=== PATIENT | male | born 1965 | race Caucasian/White ===

== ENCOUNTER 2022-02-27 15:09 | Inpatient (IN) | payer OTHER ==
[2022-02-27 17:11] VITALS: BMI 20.6
[2022-02-27] MEDS ORDERED: LOPERAMIDE HCL 2 MG CAPSULE PO PRN (17:35)
[2022-02-27] MEDS ORDERED: ACETAMINOPHEN 325 MG TABLET (FP) PO PRN ×2 (17:35)
[2022-02-27] MEDS ORDERED: IBUPROFEN 400 MG TABLET (FP) PO PRN (17:35)
[2022-02-27] MEDS ORDERED: ONDANSETRON *ODT* 4 MG TABLET SL PRN (17:35)
[2022-02-27] MEDS ORDERED: MAGNESIUM CITRATE 300 ML BOTTLE PO PRN (17:35)
[2022-02-27] MEDS ORDERED: MAG HYDROX/AL HYDROX/SIMETH 30 ML UNIT-DOSE CUP PO PRN (17:35)
[2022-02-27] MEDS ORDERED: hydrOXYzine PAMOATE 25 MG CAPSULE (FP) PO PRN (17:35)
[2022-02-27] MEDS ORDERED: BISMUTH SUBSALICYLATE 524 MG/30 ML PO PRN (17:35)
[2022-02-27] MEDS ORDERED: IBUPROFEN 600 MG TABLET (FP) PO PRN (17:35)
[2022-02-27] MEDS ORDERED: guaiFENesin 200 MG/10 ML 10 ML UNIT-DOSE CUPS PO PRN (17:35)
[2022-02-27] MEDS ORDERED: P-EPHED 60MG/TRIPROLIDI 2.5MG TABLET PO PRN (17:35)
[2022-02-27] MEDS ORDERED: MAGNESIUM HYDROX 2400MG/30ML ORAL SUSPENSION 30 ML CUP PO PRN (17:35)
[2022-02-27] MEDS ORDERED: BENZOCAINE/MENTHOL (CHLORASEPTIC ) LOZENGE MM PRN (17:35)
[2022-02-27] MEDS ORDERED: DICYCLOMINE HCL 10 MG CAPSULE PO PRN (17:35)
[2022-02-27] MEDS ORDERED: METHOCARBAMOL 500 MG TABLET PO PRN (17:35)
[2022-02-27] MEDS ORDERED: ALBUTEROL SO4 HFA INHALER IH PRN (18:17)
[2022-02-27] MEDS: ASPIRIN COATED 81 MG TABLET.EC PO SCH (19:49)
[2022-02-27] MEDS: THIAMINE HCL 100 MG TABLET (FP) PO SCH (23:05)
[2022-02-27] MEDS: PHENobarbital 30 MG TABLET PO SCH (23:06)
[2022-02-28] MEDS: PHENobarbital 30 MG TABLET PO SCH ×3 (07:04→22:16)
[2022-02-28] MEDS ORDERED: cloNIDine HCL 0.1 MG TABLET PO PRN (09:12)
[2022-02-28] MEDS ORDERED: methaDONE HCL 10 MG TABLET (FOR DETOX USE ONLY) PO ONE (09:12)
[2022-02-28] MEDS: ASPIRIN COATED 81 MG TABLET.EC PO SCH (10:24)
[2022-02-28] MEDS: PRENATAL VITAMINS W/ FOLIC ACID TABLET (FP) PO SCH (10:24)
[2022-02-28] MEDS: NICOTINE 7 MG/24 HOURS TOPICAL PATCH TD SCH (10:25)
[2022-02-28 11:21] LABS: MCH 31.3 pg (25.7-33.7); MCHC 33.4 g/dl (32.0-35.9); MEAN CELL VOLUME 93.8 fl (80-96); MEAN PLT VOLUME 8.8 fl (7.5-11.1); PLATELET COUNT 190 10^3/uL (134-434); RBC 4.48 M/mm3 (4.00-5.60); RDW 14.6 % (11.9-15.9)
[2022-02-28 11:27] LABS: ALBUMIN 3.6 g/dl (3.4-5.0); BLOOD UREA NITROGEN 18.2 mg/dL (7-18)
[2022-02-28 11:29] LABS: CALCIUM 9.3 mg/dL (8.5-10.1); CREATININE 0.7 mg/dL (0.55-1.3)
[2022-02-28 11:32] LABS: TOT PROT 7.6 g/dl (6.4-8.2)
[2022-02-28 11:33] LABS: BILIRUBIN,TOTAL 0.4 mg/dL (0.2-1)
[2022-02-28] MEDS: AMITRIPTYLINE HCL 25 MG TABLET PO SCH (22:15)
[2022-02-28] MEDS: THIAMINE HCL 100 MG TABLET (FP) PO SCH (22:16)
[2022-02-28] MEDS: MELATONIN 5 MG TABLETS PO PRN (22:16)
[2022-03-01] MEDS: PHENobarbital 30 MG TABLET PO SCH ×3 (06:29→22:20)
[2022-03-01] MEDS: PRENATAL VITAMINS W/ FOLIC ACID TABLET (FP) PO SCH (10:26)
[2022-03-01] MEDS: ASPIRIN COATED 81 MG TABLET.EC PO SCH (10:26)
[2022-03-01] MEDS: NICOTINE 7 MG/24 HOURS TOPICAL PATCH TD SCH (10:27)
[2022-03-01] MEDS: AMITRIPTYLINE HCL 25 MG TABLET PO SCH (22:20)
[2022-03-01] MEDS: THIAMINE HCL 100 MG TABLET (FP) PO SCH (22:20)
[2022-03-01] MEDS: MELATONIN 5 MG TABLETS PO PRN (22:21)
[2022-03-02] MEDS: PHENobarbital 30 MG TABLET PO SCH ×2 (05:30→14:34)
[2022-03-02] MEDS ORDERED: diazePAM 5 MG TABLET PO ONE (08:49)
[2022-03-02] MEDS: PRENATAL VITAMINS W/ FOLIC ACID TABLET (FP) PO SCH (09:19)
[2022-03-02] MEDS: ASPIRIN COATED 81 MG TABLET.EC PO SCH (09:20)
[2022-03-02] MEDS: NICOTINE 7 MG/24 HOURS TOPICAL PATCH TD SCH (09:23)
[2022-03-02] MEDS ORDERED: methaDONE HCL 10 MG TABLET (FOR DETOX USE ONLY) PO ONE (10:00)
[2022-03-02 14:45] VITALS: RESP 18
[2022-03-02 17:05] VITALS: BP 101/63; PULSE 78; TEMP 97.8
== END 2022-03-02 16:44 | disposition home or self-care (01) | DRG 773 ==
LOC: YASAS 15:09 → Y3N 18:04
PROVIDERS: ADMIT Allergy & Immunology; ATTEND Surgery
PROC: HZ2ZZZZ Detoxification Services for Substance Abuse Treatment (ICD-10-PCS; principal; 2022-02-27)
DX: F11.23 Opioid dependence with withdrawal (principal); F10.230 Alcohol dependence with withdrawal, uncomplicated; F14.20 Cocaine dependence, uncomplicated; F13.20 Sedative, hypnotic or anxiolytic dependence, uncomplicated; F16.20 Hallucinogen dependence, uncomplicated; F12.20 Cannabis dependence, uncomplicated; F17.210 Nicotine dependence, cigarettes, uncomplicated; F19.282 Other psychoactive substance dependence with psychoactive substance-induced sleep disorder; F19.24 Other psychoactive substance dependence with psychoactive substance-induced mood disorder; R56.1 Post traumatic seizures; Z86.69 Personal history of other diseases of the nervous system and sense organs; Z86.19 Personal history of other infectious and parasitic diseases; Z88.8 Allergy status to other drugs, medicaments and biological substances; Z28.310 Unvaccinated for COVID-19; Z28.9 Immunization not carried out for unspecified reason
CPT/HCPCS: 36415; 80053; 85027; 86780; C9803-CS; U0003; U0005

== ENCOUNTER 2022-07-19 17:13 | Inpatient (IN) | payer OTHER ==
[2022-07-19 18:44] VITALS: BMI 23.8
[2022-07-19] MEDS ORDERED: LOPERAMIDE HCL 2 MG CAPSULE PO PRN (19:41)
[2022-07-19] MEDS ORDERED: IBUPROFEN 400 MG TABLET (FP) PO PRN (19:41)
[2022-07-19] MEDS ORDERED: hydrOXYzine PAMOATE 25 MG CAPSULE (FP) PO PRN (19:41)
[2022-07-19] MEDS ORDERED: IBUPROFEN 600 MG TABLET (FP) PO PRN (19:41)
[2022-07-19] MEDS ORDERED: P-EPHED 60MG/TRIPROLIDI 2.5MG TABLET PO PRN (19:41)
[2022-07-19] MEDS ORDERED: DICYCLOMINE HCL 10 MG CAPSULE PO PRN (19:41)
[2022-07-19] MEDS ORDERED: BENZOCAINE/MENTHOL (CHLORASEPTIC ) LOZENGE MM PRN (19:41)
[2022-07-19] MEDS ORDERED: guaiFENesin 200 MG/10 ML 10 ML UNIT-DOSE CUPS PO PRN (19:41)
[2022-07-19] MEDS ORDERED: MAGNESIUM HYDROX 2400MG/30ML ORAL SUSPENSION 30 ML CUP PO PRN (19:41)
[2022-07-19] MEDS ORDERED: METHOCARBAMOL 500 MG TABLET PO PRN (19:41)
[2022-07-19] MEDS ORDERED: MAG HYDROX/AL HYDROX/SIMETH 30 ML UNIT-DOSE CUP PO PRN (19:41)
[2022-07-19] MEDS ORDERED: BISMUTH SUBSALICYLATE 524 MG/30 ML PO PRN (19:41)
[2022-07-19] MEDS ORDERED: ONDANSETRON *ODT* 4 MG TABLET SL PRN (19:41)
[2022-07-19] MEDS ORDERED: POLYETHYLENE GLYCOL (HEALTHYLAX) 3350 17 GM PACKET PO PRN (19:41)
[2022-07-19] MEDS ORDERED: ACETAMINOPHEN 325 MG TABLET (FP) PO PRN ×2 (19:41)
[2022-07-19] MEDS ORDERED: NALOXONE HCL (KLOXXADO) 8 MG SPRAY NS PRN (19:41)
[2022-07-19] MEDS: THIAMINE HCL 100 MG TABLET (FP) PO SCH (22:05)
[2022-07-19] MEDS: PHENobarbital 30 MG TABLET PO SCH (22:40)
[2022-07-19] MEDS: MELATONIN 5 MG TABLETS PO PRN (22:41)
[2022-07-20] MEDS ORDERED: cloNIDine HCL 0.1 MG TABLET PO PRN (09:43)
[2022-07-20] MEDS ORDERED: methaDONE HCL 10 MG TABLET (FOR DETOX USE ONLY) PO ONE (10:00)
[2022-07-20] MEDS: PHENobarbital 30 MG TABLET PO SCH ×2 (10:14→22:44)
[2022-07-20] MEDS: PRENATAL VITAMINS W/ FOLIC ACID TABLET (FP) PO SCH (10:14)
[2022-07-20] MEDS: ASPIRIN COATED 81 MG TABLET.EC PO SCH (10:14)
[2022-07-20] MEDS: NICOTINE 7 MG/24 HOURS TOPICAL PATCH TD SCH (10:15)
[2022-07-20 13:42] LABS: HEMATOCRIT 37.9 % (35.4-49); HEMOGLOBIN 13.1 GM/dL (11.7-16.9); MCH 32.5 pg (25.7-33.7); MCHC 34.6 g/dl (32.0-35.9); MEAN PLT VOLUME 9.1 fl (7.5-11.1); PLATELET COUNT 133 10^3/uL (134-434); RBC 4.03 M/mm3 (4.00-5.60); WHITE BLOOD COUNT 4.6 K/mm3 (4.0-10.0)
[2022-07-20 14:42] LABS: CALCIUM 8.6 mg/dL (8.5-10.1)
[2022-07-20 14:43] LABS: ALBUMIN 3.3 g/dl (3.4-5.0); BLOOD UREA NITROGEN 14.5 mg/dL (7-18)
[2022-07-20 14:46] LABS: CREATININE 0.6 mg/dL (0.55-1.3)
[2022-07-20 14:47] LABS: BILIRUBIN,TOTAL 0.6 mg/dL (0.2-1); TOT PROT 6.9 g/dl (6.4-8.2)
[2022-07-20] MEDS: diazePAM 5 MG TABLET PO PRN (17:36)
[2022-07-20] MEDS: THIAMINE HCL 100 MG TABLET (FP) PO SCH (22:44)
[2022-07-21] MEDS: diazePAM 5 MG TABLET PO PRN ×4 (02:25→22:42)
[2022-07-21] MEDS: PRENATAL VITAMINS W/ FOLIC ACID TABLET (FP) PO SCH (10:18)
[2022-07-21] MEDS: NICOTINE 7 MG/24 HOURS TOPICAL PATCH TD SCH (10:18)
[2022-07-21] MEDS: PHENobarbital 30 MG TABLET PO SCH ×2 (10:19→22:42)
[2022-07-21] MEDS: ASPIRIN COATED 81 MG TABLET.EC PO SCH (10:19)
[2022-07-21] MEDS: THIAMINE HCL 100 MG TABLET (FP) PO SCH (22:42)
[2022-07-22] MEDS: diazePAM 5 MG TABLET PO PRN ×3 (04:03→17:42)
[2022-07-22] MEDS ORDERED: methaDONE HCL 10 MG TABLET (FOR DETOX USE ONLY) PO ONE (10:00)
[2022-07-22] MEDS: PHENobarbital 30 MG TABLET PO SCH ×2 (10:18→22:53)
[2022-07-22] MEDS: ASPIRIN COATED 81 MG TABLET.EC PO SCH (10:19)
[2022-07-22] MEDS: NICOTINE 7 MG/24 HOURS TOPICAL PATCH TD SCH (10:23)
[2022-07-22] MEDS: PRENATAL VITAMINS W/ FOLIC ACID TABLET (FP) PO SCH (10:23)
[2022-07-22] MEDS: MELATONIN 5 MG TABLETS PO PRN (22:53)
[2022-07-22] MEDS: THIAMINE HCL 100 MG TABLET (FP) PO SCH (22:53)
[2022-07-23] MEDS: PHENobarbital 30 MG TABLET PO SCH ×2 (10:44→22:32)
[2022-07-23] MEDS: ASPIRIN COATED 81 MG TABLET.EC PO SCH (10:44)
[2022-07-23] MEDS: NICOTINE 7 MG/24 HOURS TOPICAL PATCH TD SCH (10:44)
[2022-07-23] MEDS: PRENATAL VITAMINS W/ FOLIC ACID TABLET (FP) PO SCH (10:46)
[2022-07-23] MEDS ORDERED: AMITRIPTYLINE HCL 75 MG TABLET PO SCH (22:00)
[2022-07-23] MEDS: THIAMINE HCL 100 MG TABLET (FP) PO SCH (22:30)
[2022-07-24] MEDS ORDERED: AMITRIPTYLINE HCL 25 MG TABLET PO SCH (09:34)
[2022-07-24] MEDS ORDERED: methaDONE HCL 10 MG TABLET (FOR DETOX USE ONLY) PO ONE (10:00)
[2022-07-24] MEDS: NICOTINE 7 MG/24 HOURS TOPICAL PATCH TD SCH (10:34)
[2022-07-24] MEDS: PRENATAL VITAMINS W/ FOLIC ACID TABLET (FP) PO SCH (10:35)
[2022-07-24] MEDS: ASPIRIN COATED 81 MG TABLET.EC PO SCH (10:35)
[2022-07-24] MEDS: PHENobarbital 30 MG TABLET PO SCH ×2 (10:36→22:13)
[2022-07-24] MEDS: THIAMINE HCL 100 MG TABLET (FP) PO SCH (22:13)
[2022-07-25 09:14] VITALS: BP 100/60; PULSE 71; RESP 18; TEMP 97.5
[2022-07-25] MEDS: ASPIRIN COATED 81 MG TABLET.EC PO SCH (10:28)
[2022-07-25] MEDS: PRENATAL VITAMINS W/ FOLIC ACID TABLET (FP) PO SCH (10:28)
[2022-07-25] MEDS: PHENobarbital 30 MG TABLET PO SCH (10:28)
[2022-07-25] MEDS: NICOTINE 7 MG/24 HOURS TOPICAL PATCH TD SCH (10:28)
[2022-07-25] MEDS ORDERED: AMITRIPTYLINE HCL 25 MG TABLET PO SCH (22:00)
== END 2022-07-25 15:30 | disposition other institution (70) | DRG 773 ==
LOC: YASAS 17:13 → Y6N 21:57
PROVIDERS: ADMIT Allergy & Immunology; ATTEND Surgery
PROC: HZ2ZZZZ Detoxification Services for Substance Abuse Treatment (ICD-10-PCS; principal; 2022-07-19)
DX: F11.23 Opioid dependence with withdrawal (principal); F10.230 Alcohol dependence with withdrawal, uncomplicated; F14.20 Cocaine dependence, uncomplicated; F13.20 Sedative, hypnotic or anxiolytic dependence, uncomplicated; F16.20 Hallucinogen dependence, uncomplicated; F17.210 Nicotine dependence, cigarettes, uncomplicated; F19.282 Other psychoactive substance dependence with psychoactive substance-induced sleep disorder; F19.280 Other psychoactive substance dependence with psychoactive substance-induced anxiety disorder; R56.1 Post traumatic seizures; B18.2 Chronic viral hepatitis C; Z86.73 Personal history of transient ischemic attack (TIA), and cerebral infarction without residual deficits; Z87.820 Personal history of traumatic brain injury; Z28.310 Unvaccinated for COVID-19; Z28.9 Immunization not carried out for unspecified reason; Z56.0 Unemployment, unspecified; Z59.00 Homelessness unspecified
CPT/HCPCS: 36415; 80053; 80184; 82962; 85027; 86780; 87811; C9803-CS; U0003; U0005

== ENCOUNTER 2022-07-25 15:28 | Inpatient (IN) | payer OTHER ==
[2022-07-25] MEDS ORDERED: IBUPROFEN 400 MG TABLET (FP) PO PRN (16:14)
[2022-07-25] MEDS ORDERED: MAGNESIUM HYDROX 2400MG/30ML ORAL SUSPENSION 30 ML CUP PO PRN (16:14)
[2022-07-25] MEDS ORDERED: POLYETHYLENE GLYCOL (HEALTHYLAX) 3350 17 GM PACKET PO PRN (16:14)
[2022-07-25] MEDS ORDERED: BENZOCAINE/MENTHOL (CHLORASEPTIC ) LOZENGE MM PRN (16:14)
[2022-07-25] MEDS ORDERED: LOPERAMIDE HCL 2 MG CAPSULE PO PRN (16:14)
[2022-07-25] MEDS ORDERED: ACETAMINOPHEN 325 MG TABLET (FP) PO PRN (16:14)
[2022-07-25] MEDS ORDERED: MAG HYDROX/AL HYDROX/SIMETH 30 ML UNIT-DOSE CUP PO PRN (16:14)
[2022-07-25] MEDS ORDERED: P-EPHED 60MG/TRIPROLIDI 2.5MG TABLET PO PRN (16:14)
[2022-07-25] MEDS ORDERED: guaiFENesin 200 MG/10 ML 10 ML UNIT-DOSE CUPS PO PRN (16:14)
[2022-07-25] MEDS ORDERED: NICOTINE 10 MG CARTRIDGE (INHALER) IH PRN (16:14)
[2022-07-25] MEDS ORDERED: hydrOXYzine PAMOATE 25 MG CAPSULE (FP) PO PRN (16:14)
[2022-07-25] MEDS: PRENATAL VITAMINS W/ FOLIC ACID TABLET (FP) PO SCH (17:45)
[2022-07-25] MEDS: NICOTINE 7 MG/24 HOURS TOPICAL PATCH TD SCH (17:45)
[2022-07-25] MEDS: MELATONIN 5 MG TABLETS PO SCH (21:30)
[2022-07-25] MEDS: PHENobarbital 30 MG TABLET PO SCH (21:30)
[2022-07-25] MEDS: THIAMINE HCL 100 MG TABLET (FP) PO SCH (21:30)
[2022-07-25] MEDS: AMITRIPTYLINE HCL 25 MG TABLET PO SCH (21:30)
[2022-07-25] MEDS ORDERED: PHENOBARBITAL 30 MG PO SCH (22:00)
[2022-07-26] MEDS: ASPIRIN COATED 81 MG TABLET.EC PO SCH (10:10)
[2022-07-26] MEDS: PRENATAL VITAMINS W/ FOLIC ACID TABLET (FP) PO SCH (10:10)
[2022-07-26] MEDS: NICOTINE 7 MG/24 HOURS TOPICAL PATCH TD SCH (10:11)
[2022-07-26] MEDS: PHENobarbital 30 MG TABLET PO SCH ×2 (11:08→21:14)
[2022-07-26] MEDS: AMITRIPTYLINE HCL 25 MG TABLET PO SCH (21:13)
[2022-07-26] MEDS: THIAMINE HCL 100 MG TABLET (FP) PO SCH (21:13)
[2022-07-26] MEDS: MELATONIN 5 MG TABLETS PO SCH (21:15)
[2022-07-27] MEDS: PRENATAL VITAMINS W/ FOLIC ACID TABLET (FP) PO SCH (10:05)
[2022-07-27] MEDS: ASPIRIN COATED 81 MG TABLET.EC PO SCH (10:05)
[2022-07-27] MEDS: NICOTINE 7 MG/24 HOURS TOPICAL PATCH TD SCH (10:05)
[2022-07-27] MEDS: PHENobarbital 30 MG TABLET PO SCH ×2 (10:05→21:27)
[2022-07-27] MEDS: THIAMINE HCL 100 MG TABLET (FP) PO SCH (21:27)
[2022-07-27] MEDS: AMITRIPTYLINE HCL 25 MG TABLET PO SCH (21:27)
[2022-07-27] MEDS: MELATONIN 5 MG TABLETS PO SCH (21:28)
[2022-07-28] MEDS: PHENobarbital 30 MG TABLET PO SCH ×2 (10:02→21:38)
[2022-07-28] MEDS: NICOTINE 7 MG/24 HOURS TOPICAL PATCH TD SCH (10:02)
[2022-07-28] MEDS: PRENATAL VITAMINS W/ FOLIC ACID TABLET (FP) PO SCH (10:02)
[2022-07-28] MEDS: ASPIRIN COATED 81 MG TABLET.EC PO SCH (10:03)
[2022-07-28] MEDS: AMITRIPTYLINE HCL 25 MG TABLET PO SCH (21:36)
[2022-07-28] MEDS: THIAMINE HCL 100 MG TABLET (FP) PO SCH (21:37)
[2022-07-28] MEDS: MELATONIN 5 MG TABLETS PO SCH (21:39)
[2022-07-29] MEDS: PRENATAL VITAMINS W/ FOLIC ACID TABLET (FP) PO SCH (10:41)
[2022-07-29] MEDS: PHENobarbital 30 MG TABLET PO SCH ×2 (10:41→21:21)
[2022-07-29] MEDS: NICOTINE 7 MG/24 HOURS TOPICAL PATCH TD SCH (10:41)
[2022-07-29] MEDS: ASPIRIN COATED 81 MG TABLET.EC PO SCH (10:41)
[2022-07-29] MEDS: AMITRIPTYLINE HCL 25 MG TABLET PO SCH (21:20)
[2022-07-29] MEDS: THIAMINE HCL 100 MG TABLET (FP) PO SCH (21:20)
[2022-07-29] MEDS: MELATONIN 5 MG TABLETS PO SCH (21:22)
[2022-07-30] MEDS: PHENobarbital 30 MG TABLET PO SCH ×2 (10:10→21:25)
[2022-07-30] MEDS: PRENATAL VITAMINS W/ FOLIC ACID TABLET (FP) PO SCH (10:10)
[2022-07-30] MEDS: ASPIRIN COATED 81 MG TABLET.EC PO SCH (10:10)
[2022-07-30] MEDS: NICOTINE 7 MG/24 HOURS TOPICAL PATCH TD SCH (10:11)
[2022-07-30] MEDS: AMITRIPTYLINE HCL 25 MG TABLET PO SCH (21:24)
[2022-07-30] MEDS: THIAMINE HCL 100 MG TABLET (FP) PO SCH (21:24)
[2022-07-30] MEDS: MELATONIN 5 MG TABLETS PO SCH (21:24)
[2022-07-31 09:00] VITALS: RESP 18
[2022-07-31] MEDS: ASPIRIN COATED 81 MG TABLET.EC PO SCH (10:37)
[2022-07-31] MEDS: PRENATAL VITAMINS W/ FOLIC ACID TABLET (FP) PO SCH (10:37)
[2022-07-31] MEDS: PHENobarbital 30 MG TABLET PO SCH ×3 (10:37→21:07)
[2022-07-31] MEDS: NICOTINE 7 MG/24 HOURS TOPICAL PATCH TD SCH (10:38)
[2022-07-31] MEDS: AMITRIPTYLINE HCL 25 MG TABLET PO SCH (21:06)
[2022-07-31] MEDS: THIAMINE HCL 100 MG TABLET (FP) PO SCH (21:07)
[2022-07-31] MEDS ORDERED: SUVOREXANT 10 MG TABLET PO PRN (22:00)
[2022-08-01] MEDS: PHENobarbital 30 MG TABLET PO SCH ×3 (06:44→21:19)
[2022-08-01] MEDS: ASPIRIN COATED 81 MG TABLET.EC PO SCH (09:53)
[2022-08-01] MEDS: PRENATAL VITAMINS W/ FOLIC ACID TABLET (FP) PO SCH (09:53)
[2022-08-01] MEDS: NICOTINE 7 MG/24 HOURS TOPICAL PATCH TD SCH (09:53)
[2022-08-01] MEDS: AMITRIPTYLINE HCL 25 MG TABLET PO SCH (21:20)
[2022-08-01] MEDS: THIAMINE HCL 100 MG TABLET (FP) PO SCH (21:20)
[2022-08-02] MEDS: PHENobarbital 30 MG TABLET PO SCH ×3 (06:07→21:20)
[2022-08-02] MEDS: NICOTINE 7 MG/24 HOURS TOPICAL PATCH TD SCH (09:52)
[2022-08-02] MEDS: ASPIRIN COATED 81 MG TABLET.EC PO SCH (09:52)
[2022-08-02] MEDS: PRENATAL VITAMINS W/ FOLIC ACID TABLET (FP) PO SCH (09:52)
[2022-08-02] MEDS: THIAMINE HCL 100 MG TABLET (FP) PO SCH (21:19)
[2022-08-02] MEDS: AMITRIPTYLINE HCL 25 MG TABLET PO SCH (21:19)
[2022-08-03] MEDS: PHENobarbital 30 MG TABLET PO SCH (06:15)
[2022-08-03 06:53] VITALS: TEMP 98.2
[2022-08-03 08:46] VITALS: BP 112/67; PULSE 79
[2022-08-03] MEDS: PRENATAL VITAMINS W/ FOLIC ACID TABLET (FP) PO SCH (09:39)
[2022-08-03] MEDS: ASPIRIN COATED 81 MG TABLET.EC PO SCH (09:39)
[2022-08-03] MEDS: NICOTINE 7 MG/24 HOURS TOPICAL PATCH TD SCH (09:39)
== END 2022-08-03 12:30 | disposition home or self-care (01) | DRG 772 ==
LOC: YASAS 15:28 → Y3W 15:29
PROVIDERS: ADMIT Allergy & Immunology; ATTEND Allergy & Immunology
PROC: HZ42ZZZ Group Counseling for Substance Abuse Treatment, Cognitive-Behavioral (ICD-10-PCS; principal; 2022-07-25)
DX: F11.20 Opioid dependence, uncomplicated (principal); F10.20 Alcohol dependence, uncomplicated; F13.20 Sedative, hypnotic or anxiolytic dependence, uncomplicated; F16.20 Hallucinogen dependence, uncomplicated; F17.210 Nicotine dependence, cigarettes, uncomplicated; F19.282 Other psychoactive substance dependence with psychoactive substance-induced sleep disorder; F19.24 Other psychoactive substance dependence with psychoactive substance-induced mood disorder; F41.9 Anxiety disorder, unspecified; E11.9 Type 2 diabetes mellitus without complications; R56.1 Post traumatic seizures; Z86.19 Personal history of other infectious and parasitic diseases; Z86.73 Personal history of transient ischemic attack (TIA), and cerebral infarction without residual deficits; Z88.8 Allergy status to other drugs, medicaments and biological substances; Z59.00 Homelessness unspecified
CPT/HCPCS: 36415; 71046-TC-FY; 82962; 86803; 87522

== ENCOUNTER 2023-01-12 18:54 | Inpatient (IN) | payer OTHER ==
[2023-01-12 21:28] VITALS: BMI 22.8
[2023-01-13] MEDS ORDERED: METHOCARBAMOL 500 MG TABLET PO PRN (00:09)
[2023-01-13] MEDS ORDERED: NICOTINE POLACRILEX 2 MG GUM BUC PRN (00:09)
[2023-01-13] MEDS ORDERED: ONDANSETRON *ODT* 4 MG TABLET SL PRN (00:09)
[2023-01-13] MEDS ORDERED: MAG HYDROX/AL HYDROX/SIMETH 30 ML UNIT-DOSE CUP PO PRN (00:09)
[2023-01-13] MEDS ORDERED: POLYETHYLENE GLYCOL (HEALTHYLAX) 3350 17 GM PACKET PO PRN (00:09)
[2023-01-13] MEDS ORDERED: P-EPHED 60MG/TRIPROLIDI 2.5MG TABLET PO PRN (00:09)
[2023-01-13] MEDS ORDERED: IBUPROFEN 400 MG TABLET (FP) PO PRN (00:09)
[2023-01-13] MEDS ORDERED: LOPERAMIDE HCL 2 MG CAPSULE PO PRN (00:09)
[2023-01-13] MEDS ORDERED: DICYCLOMINE HCL 10 MG CAPSULE PO PRN (00:09)
[2023-01-13] MEDS ORDERED: ACETAMINOPHEN 325 MG TABLET (FP) PO PRN (00:09)
[2023-01-13] MEDS ORDERED: MAGNESIUM HYDROX 2400MG/30ML ORAL SUSPENSION 30 ML CUP PO PRN (00:09)
[2023-01-13] MEDS ORDERED: guaiFENesin 600 MG TABLET.ER (FP) PO PRN (00:09)
[2023-01-13] MEDS ORDERED: BISMUTH SUBSALICYLATE 524 MG/30 ML PO PRN (00:09)
[2023-01-13] MEDS ORDERED: BENZOCAINE/MENTHOL (CHLORASEPTIC ) LOZENGE MM PRN (00:09)
[2023-01-13] MEDS ORDERED: hydrOXYzine PAMOATE 25 MG CAPSULE (FP) PO PRN (00:09)
[2023-01-13] MEDS ORDERED: BENZONATATE 200 MG CAPSULE PO PRN (00:09)
[2023-01-13] MEDS ORDERED: IBUPROFEN 600 MG TABLET (FP) PO PRN (00:09)
[2023-01-13] MEDS: PHENobarbital 30 MG TABLET PO SCH ×3 (05:46→22:46)
[2023-01-13] MEDS: PRENATAL VITAMINS W/ FOLIC ACID TABLET (FP) PO SCH (10:14)
[2023-01-13] MEDS ORDERED: methaDONE HCL 10 MG TABLET PO SCH (10:15)
[2023-01-13] MEDS: methaDONE 40 MG, methaDONE 20 MG PO SCH (10:38)
[2023-01-13] MEDS: MELATONIN 5 MG TABLETS PO SCH (22:46)
[2023-01-13] MEDS: THIAMINE HCL 100 MG TABLET (FP) PO SCH (22:46)
[2023-01-14] MEDS: PHENobarbital 30 MG TABLET PO SCH ×3 (05:39→22:38)
[2023-01-14] MEDS: methaDONE 40 MG, methaDONE 20 MG PO SCH (05:39)
[2023-01-14] MEDS ORDERED: LORazepam 1 MG TABLET PO PRN (09:24)
[2023-01-14] MEDS: PRENATAL VITAMINS W/ FOLIC ACID TABLET (FP) PO SCH (10:30)
[2023-01-14] MEDS: ASPIRIN COATED 81 MG TABLET.EC PO SCH (10:32)
[2023-01-14] MEDS: SILVER SULFADIAZINE 1% TOP CREAM 50 GM JAR TP SCH (12:42)
[2023-01-14] MEDS ORDERED: NICOTINE 14 MG/24 HOURS TOPICAL PATCH TD PRN (12:56)
[2023-01-14 16:00] LABS: HEMATOCRIT 40.5 % (35.4-49); HEMOGLOBIN 13.5 GM/dL (11.7-16.9); MCHC 33.2 g/dl (32.0-35.9); MEAN CELL VOLUME 93.3 fl (80-96); PLATELET COUNT 187 10^3/uL (134-434); RBC 4.35 M/mm3 (4.00-5.60); WHITE BLOOD COUNT 3.7 K/mm3 (4.0-10.0)
[2023-01-14 16:11] LABS: POTASSIUM 5.2 mmol/L (3.5-5.1)
[2023-01-14 16:19] LABS: CALCIUM 8.8 mg/dL (8.5-10.1)
[2023-01-14 16:20] LABS: ALBUMIN 3.2 g/dl (3.4-5.0); BLOOD UREA NITROGEN 15.4 mg/dL (7-18)
[2023-01-14 16:22] LABS: BILIRUBIN,TOTAL 0.4 mg/dL (0.2-1)
[2023-01-14 16:23] LABS: CREATININE 0.5 mg/dL (0.55-1.3); TOT PROT 6.8 g/dl (6.4-8.2)
[2023-01-14] MEDS: LORazepam 2 MG TABLET PO SCH ×2 (17:30→22:38)
[2023-01-14] MEDS: MELATONIN 5 MG TABLETS PO SCH (22:37)
[2023-01-14] MEDS: THIAMINE HCL 100 MG TABLET (FP) PO SCH (22:37)
[2023-01-15] MEDS: methaDONE 40 MG, methaDONE 20 MG PO SCH (05:29)
[2023-01-15] MEDS: LORazepam 1 MG TABLET PO SCH ×4 (05:29→23:40)
[2023-01-15] MEDS: PHENobarbital 30 MG TABLET PO SCH ×3 (05:30→23:36)
[2023-01-15] MEDS: PRENATAL VITAMINS W/ FOLIC ACID TABLET (FP) PO SCH (10:44)
[2023-01-15] MEDS: SILVER SULFADIAZINE 1% TOP CREAM 50 GM JAR TP SCH (10:45)
[2023-01-15] MEDS: ASPIRIN COATED 81 MG TABLET.EC PO SCH (10:45)
[2023-01-15] MEDS ORDERED: MAGNESIUM HYDROX 2400MG/30ML ORAL SUSPENSION 30 ML CUP PO ONE (13:19)
[2023-01-15] MEDS: DOCUSATE SODIUM 100 MG CAPSULE (FP) PO SCH ×2 (13:24→23:36)
[2023-01-15] MEDS: MELATONIN 5 MG TABLETS PO SCH (23:36)
[2023-01-15] MEDS: SENNOSIDES 8.6MG TABLET (FP) PO SCH (23:36)
[2023-01-15] MEDS: THIAMINE HCL 100 MG TABLET (FP) PO SCH (23:37)
[2023-01-16] MEDS: DOCUSATE SODIUM 100 MG CAPSULE (FP) PO SCH ×3 (05:38→22:19)
[2023-01-16] MEDS: PHENobarbital 30 MG TABLET PO SCH ×3 (05:38→22:19)
[2023-01-16] MEDS: LORazepam 0.5 MG TABLET PO SCH ×4 (05:39→22:20)
[2023-01-16] MEDS: methaDONE 40 MG, methaDONE 20 MG PO SCH (05:39)
[2023-01-16] MEDS: PRENATAL VITAMINS W/ FOLIC ACID TABLET (FP) PO SCH (10:31)
[2023-01-16] MEDS: ASPIRIN COATED 81 MG TABLET.EC PO SCH (10:32)
[2023-01-16] MEDS: SILVER SULFADIAZINE 1% TOP CREAM 50 GM JAR TP SCH (10:34)
[2023-01-16] MEDS: SENNOSIDES 8.6MG TABLET (FP) PO SCH (22:20)
[2023-01-16] MEDS: THIAMINE HCL 100 MG TABLET (FP) PO SCH (22:20)
[2023-01-16] MEDS: MELATONIN 5 MG TABLETS PO SCH (23:46)
[2023-01-17] MEDS ORDERED: LORazepam 0.5 MG TABLET PO ONE (05:00)
[2023-01-17] MEDS: PHENobarbital 30 MG TABLET PO SCH (05:32)
[2023-01-17] MEDS: methaDONE 40 MG, methaDONE 20 MG PO SCH (05:32)
[2023-01-17] MEDS: DOCUSATE SODIUM 100 MG CAPSULE (FP) PO SCH (05:32)
[2023-01-17 09:08] VITALS: BP 102/66; PULSE 78; RESP 18; TEMP 97.2
[2023-01-17] MEDS: ASPIRIN COATED 81 MG TABLET.EC PO SCH (10:26)
[2023-01-17] MEDS: PRENATAL VITAMINS W/ FOLIC ACID TABLET (FP) PO SCH (10:26)
[2023-01-17] MEDS: SILVER SULFADIAZINE 1% TOP CREAM 50 GM JAR TP SCH (10:26)
[2023-01-17] MEDS ORDERED: BACITRACIN 0.9 GM PACKET TP SCH (12:45)
== END 2023-01-17 12:00 | disposition home or self-care (01) | DRG 773 ==
LOC: YASAS 18:54 → Y6N 01-13 02:58
PROVIDERS: ADMIT Allergy & Immunology; ATTEND Allergy & Immunology
PROC: HZ2ZZZZ Detoxification Services for Substance Abuse Treatment (ICD-10-PCS; principal; 2023-01-13)
DX: F10.230 Alcohol dependence with withdrawal, uncomplicated (principal); F11.20 Opioid dependence, uncomplicated; F14.20 Cocaine dependence, uncomplicated; R56.1 Post traumatic seizures; F16.10 Hallucinogen abuse, uncomplicated; F12.20 Cannabis dependence, uncomplicated; F17.213 Nicotine dependence, cigarettes, with withdrawal; K59.03 Drug induced constipation; F19.24 Other psychoactive substance dependence with psychoactive substance-induced mood disorder; Z87.820 Personal history of traumatic brain injury; Z87.828 Personal history of other (healed) physical injury and trauma; Z28.310 Unvaccinated for COVID-19; Z28.9 Immunization not carried out for unspecified reason; Z88.8 Allergy status to other drugs, medicaments and biological substances
CPT/HCPCS: 36415; 80053; 80184; 82962; 84132; 85027; 86780; 87635; 87811; Q0162